=== PATIENT | female | born 1975 | race Caucasian/White ===

== ENCOUNTER 2018-10-07 06:13 | Emergency (ER) | payer SELFPAY ==
[~2018-10-07] VITALS: Ht 144.8 cm; Wt 59.0 kg
[2018-10-07 06:29] VITALS: BP 124/83
[2018-10-07] MEDS ORDERED: PENI500T PO (06:41)
[2018-10-07] MEDS ORDERED: ACET-704 PO (06:41)
[2018-10-07] MEDS ORDERED: NAPR-683 PO (06:41)
--- NOTE | 2018-10-07 06:41 | PHYS DOC ---
Past Medical History Past Medical History: No Pertinent History Past Surgical History: No Surgical History Alcohol Use: None Drug Use: None Adult General Chief Complaint Chief Complaint: DENTAL PROBLEM HPI HPI Patient is a 43 year old female who presents with complaining of tooth abscess. Patient complaining of pain in left upper jaw and tooth for the last 2 days with edema of gum and states she thinks she has abscess. Patient denies recent injury, fever and chills, dysphagia. Patient states she has had problem with her teeth with missing multiple teeth. Patient currently is smoking. Review of Systems Review of Systems Constitutional: Denies fever or chills [] Eyes: Denies change in visual acuity, redness, or eye pain [] HENT: Denies nasal congestion or sore throat [] Respiratory: Denies cough or shortness of breath [] Cardiovascular: No additional information not addressed in HPI [] GI: Denies abdominal pain, nausea, vomiting, bloody stools or diarrhea [] : Denies dysuria or hematuria [] Musculoskeletal: Denies back pain or joint pain [] Integument: Denies rash or skin lesions [] Neurologic: Denies headache, focal weakness or sensory changes [] Endocrine: Denies polyuria or polydipsia [] All other systems were reviewed and found to be within normal limits, except as documented in this note. Allergies Allergies Allergies Coded Allergies Type Severity Reaction Last Updated Verified No Known Drug Allergies 10/07/18 No Physical Exam Physical Exam Constitutional: Well developed, well nourished, mild distress, non-toxic appearance. [] HENT: Normocephalic, atraumatic, poor dental hygiene, edema and tenderness of gum in area of tooth #12 and 13 dental cavity and tenderness in the teeth. Eyes: PERRLA, EOMI, conjunctiva normal, no discharge. [] Neck: Normal range of motion, no tenderness, supple, no stridor. [] Cardiovascular:Heart rate regular rhythm, no murmur [] Lungs & Thorax: Bilateral breath sounds clear to auscultation [] Neurologic: Alert and oriented X 3, no focal deficits noted. [] Psychologic: Affect normal, judgement normal, mood normal. [] Current Patient Data Vital Signs Vital Signs Date Time Temp Pulse Resp B/P (MAP) Pulse Ox O2 Delivery O2 Flow Rate FiO2 10/07/18 06:29 99.0 80 18 124/83 (97) 98 Room Air 99.0 EKG EKG [] Radiology/Procedures Radiology/Procedures [] Course & Med Decision Making Course & Med Decision Making Evaluation of patient in ER showed 43-year-old female patient presented to ER with complaining of dental pain and abscess without fever and chills and facial cellulitis. Patient did not want to have pain medication in ER. Patient was advised to quit smoking Follow-up with the dentist. Dragon Disclaimer Dragon Disclaimer This electronic medical record was generated, in whole or in part, using a voice recognition dictation system. Departure Departure Impression: Primary Impression: Dental abscess Disposition: HOME, SELF-CARE (@0638) Condition: STABLE Patient Instructions: Dental Abscess Additional Instructions: Quit smoking Follow-up with your dentist in 3-5 days Return to ER if not getting better Scripts Acetaminophen With Codeine (TYLENOL WITH CODEINE #3 TABLET) 1 Each Tablet 1 TAB PO PRN Q6HRS PRN for PAIN, #10 TAB Prov: AILYN BETANCOURT MD 10/07/18 Penicillin V Potassium (PENICILLIN V POTASSIUM) 500 Mg Tablet 2 TAB PO Q12HR, #40 TAB Prov: AILYN BETANCOURT MD 10/07/18 Naproxen (NAPROSYN) 500 Mg Tablet 1 TAB PO BID for pain, #20 TAB Prov: AILYN BETANCOURT MD 10/07/18 AILYN BETANCOURT MD Oct 07, 2018 06:41
== END 2018-10-07 06:50 | disposition home or self-care (01) ==
LOC: ER 06:13
DX: K04.7 Periapical abscess without sinus (principal); L03.211 Cellulitis of face; F17.200 Nicotine dependence, unspecified, uncomplicated
CPT/HCPCS: 99283

== ENCOUNTER 2018-11-10 18:21 | Emergency (ER) | payer SELFPAY ==
[~2018-11-10] VITALS: Ht 144.8 cm; Wt 59.0 kg
[~2018-11-10 18:21] MED LIST: ACET-704 PO; NAPR-683 PO; PENI500T PO
[2018-11-10] MEDS ORDERED: predniSONE 20 MG TABLET PO ONE (19:15)
[2018-11-10] MEDS ORDERED: IPRATRPIUM/ALBUTEROL 0.5/2.5MG 3 ML NEBU. NEB ONE (19:15)
[2018-11-10] MEDS ORDERED: HYDROcodone/APAP 5/325MG 1 TAB TABLET PO ONE (19:15)
[2018-11-10] MEDS ORDERED: HYDR-3164 PO (19:24)
[2018-11-10] MEDS ORDERED: PRED50TA PO (19:24)
[2018-11-10] MEDS ORDERED: ALBU2.5V5 NEB (19:24)
--- NOTE | 2018-11-10 19:27 | PHYS DOC ---
Past Medical History Past Medical History: Asthma Past Surgical History: No Surgical History Smoking: Cigarettes Alcohol Use: None Drug Use: None Adult General Chief Complaint Chief Complaint: ASTHMA HPI HPI Patient is a 43 year old female who presents with complaining of asthma. Patient complaining of dry cough and shortness of breath since this morning with bilateral chest wall pain during episodes of cough. Patient states she is out of asthma medication including inhalers and nebulizer medication. Patient did not have sick contact. Patient states she did not smoke today because of shortness of breath. Patient denies fever, , vomiting and diarrhea. Review of Systems Review of Systems Constitutional: Denies fever or chills [] Eyes: Denies change in visual acuity, redness, or eye pain [] HENT: Denies nasal congestion or sore throat [] Respiratory: Reports cough and shortness of breath Cardiovascular: No additional information not addressed in HPI [] GI: Denies abdominal pain, nausea, vomiting, bloody stools or diarrhea [] : Denies dysuria or hematuria [] Musculoskeletal: Denies back pain or joint pain [] Integument: Denies rash or skin lesions [] Neurologic: Denies headache, focal weakness or sensory changes [] Endocrine: Denies polyuria or polydipsia [] All other systems were reviewed and found to be within normal limits, except as documented in this note. Current Medications Current Medications Current Medications Medications (Trade) Dose Ordered Sig/Chris Start Time Stop Time Status Last Admin Dose Admin Acetaminophen/ Hydrocodone Bitart (Lortab 5/325) 1 tab 1X ONCE 11/10/18 19:15 11/10/18 19:16 DC 11/10/18 19:19 1 TAB Albuterol/ Ipratropium (Duoneb) 3 ml 1X ONCE 11/10/18 19:15 11/10/18 19:16 DC 11/10/18 19:36 3 ML Prednisone (Prednisone) 60 mg 1X ONCE 11/10/18 19:15 11/10/18 19:16 DC 11/10/18 19:18 60 MG Allergies Allergies Allergies Coded Allergies Type Severity Reaction Last Updated Verified No Known Drug Allergies 10/07/18 No Physical Exam Physical Exam Constitutional: Well developed, well nourished, mild distress, non-toxic appearance. [] HENT: Normocephalic, atraumatic, bilateral external ears normal, oropharynx moist, no oral exudates, nose normal. [] Eyes: PERRLA, EOMI, conjunctiva normal, no discharge. [] Neck: Normal range of motion, no tenderness, supple, no stridor. [] Cardiovascular:Heart rate regular rhythm, no murmur [] Lungs & Thorax: No respiratory distress, bilateral wheezing and coarse breath sounds Abdomen: Bowel sounds normal, soft, no tenderness, no masses, no pulsatile masses. [] Skin: Warm, dry, no erythema, no rash. [] Back: No tenderness, no CVA tenderness. [] Extremities: No tenderness, no cyanosis, no clubbing, ROM intact, no edema. [] Neurologic: Alert and oriented X 3, normal motor function, normal sensory function, no focal deficits noted. [] Psychologic: Affect normal, judgement normal, mood normal. [] Current Patient Data Vital Signs Vital Signs Date Time Temp Pulse Resp B/P (MAP) Pulse Ox O2 Delivery O2 Flow Rate FiO2 11/10/18 19:46 72 18 120/67 (84) 99 Room Air 11/10/18 18:38 98.4 98.4 EKG EKG [] Radiology/Procedures Radiology/Procedures [] Course & Med Decision Making Course & Med Decision Making Evaluation of patient in ER showed 43-year-old female patient with history of asthma and smoking presented with acute asthma episode without having asthma medication at home. Patient treated with nebulizer treatment and [place] and prednisone PO in ER(patient didn't want to have injection of prednisone). Patient was advised to quit smoking. I've spoken with the patient and/or caregivers. I've explained the patient's condition, diagnosis and treatment plan based on information available to me at this time. I've answered the patient's and/or caregivers questions and addressed any concerns. The patient and/or caregivers have a good understanding the patient's diagnosis, condition and treatment plan as can be expected at this point. Vital signs have been stabilized. The patient's condition is stable for discharge from the emergency department. The patient will pursue further outpatient evaluation with her primary care provider or other designated consulting physician as outlined in the discharge instructions. Patient and/or caregivers are agreeable to this plan of care and follow-up instructions have been explained in detail. The patient and/or caregivers have received these instructions in written format and expressed understanding of these discharge instructions. The patient and her caregivers are aware that if any significant change in condition or worsening of symptoms should prompt him to immediately return to this of the closest emergency department. If an emergent department is not readily available I would encourage him to call 911. Ansley Disclaimer Ansley Disclaimer This electronic medical record was generated, in whole or in part, using a voice recognition dictation system. Departure Departure Impression: Primary Impression: Acute asthma exacerbation Disposition: HOME, SELF-CARE (at 1930) Condition: IMPROVED Referrals: NO PCP (PCP) Patient Instructions: Asthma Attacks, Prevention, Asthma, Acute Bronchospasm, Smoking Cessation, Tips For Success Additional Instructions: Drink plenty of liquids Follow-up with your primary care physician in 3-5 days Return to ER if not getting better Scripts Prednisone (PREDNISONE) 50 Mg Tablet 1 TAB PO DAILY, #5 TAB Prov: AILYN BETANCOURT MD 11/10/18 Hydrocodone/Apap 5-325 (NORCO 5-325 TABLET) 1 Each Tablet 1 TAB PO PRN Q6HRS PRN for PAIN, #10 TAB 0 Refills Prov: AILYN BETANCOURT MD 11/10/18 Albuterol Sulfate (ALBUTEROL SULFATE NEB SOLN) 2.5 Mg/3 Ml Vial.neb 1 VIAL NEB Q6HRS PRN for SHORTNESS OF BREATH, #25 VIAL Prov: AILYN BETANCOURT MD 11/10/18 Problem Qualifiers Primary Impression: Acute asthma exacerbation Asthma severity: mild Asthma persistence: intermittent Qualified Codes: J45.21 - Mild intermittent asthma with (acute) exacerbation AILYN BETANCOURT MD Nov 10, 2018 19:27
[2018-11-10 19:46] VITALS: BP 120/67
== END 2018-11-10 19:50 | disposition home or self-care (01) ==
LOC: ER 18:21
DX: J45.21 Mild intermittent asthma with (acute) exacerbation (principal); F17.210 Nicotine dependence, cigarettes, uncomplicated
CPT/HCPCS: 94640; 99283; J7512; J7620

== ENCOUNTER 2020-07-15 15:02 | Emergency (ER) | payer SELFPAY ==
[~2020-07-15] VITALS: Ht 144.8 cm; Wt 50.0 kg
[~2020-07-15 15:02] MED LIST changes: +ALBU2.5V5 NEB; +HYDR-3164 PO; +PRED50TA PO
[2020-07-15 15:43] VITALS: BP 107/71
[2020-07-15 15:54] LABS: BILIRUBIN,URINE NEGATIVE (NEG); CLARITY,URINE CLEAR; COLOR,URINE YELLOW; NITRITE,URINE NEGATIVE (NEG); PROTEIN,URINE NEGATIVE (NEG-TRACE); UROBILINOGEN,URINE 0.2 mg/dL (0.2 mg/dL)
--- NOTE | 2020-07-15 15:55 | ED.ADGEN ---
Past Medical History Past Medical History: Anxiety, Asthma Past Surgical History: Tubal ligation Smoking Status: Current Every Day Smoker Alcohol Use: None Drug Use: None General Adult EDM: Chief Complaint: FLANK PAIN HPI: HPI: Patient is a 45-year-old female who arrives ambulatory to the emergency department complaining of a 2-day history of left flank pain. Patient states this pain has been waxing and waning during this time and has an aching character to it. The patient states she is of the opinion she may have a kidney infection once antibiotics so she can go home. She denies any fevers or dysuria. She further denies abdominal pain. Additionally she denies any vaginal symptoms. She is awake, alert and nontoxic-appearing. Review of Systems: Review of Systems: Constitutional: Denies fever or chills. [] Eyes: Denies change in visual acuity. [] HENT: Denies nasal congestion or sore throat. [] Respiratory: Denies cough or shortness of breath. [] Cardiovascular: Denies chest pain or edema. [] GI: Denies abdominal pain, nausea, vomiting, bloody stools or diarrhea. [] : Reports left flank pain. Denies dysuria. [] Musculoskeletal: Denies back pain or joint pain. [] Integument: Denies rash. [] Neurologic: Denies headache, focal weakness or sensory changes. [] Endocrine: Denies polyuria or polydipsia. [] Lymphatic: Denies swollen glands. [] Psychiatric: Denies depression or anxiety. [] Allergies: Allergies: Allergies Coded Allergies Type Severity Reaction Last Updated Verified No Known Drug Allergies 10/07/18 No Physical Exam: PE: Constitutional: Uncomfortable appearing. Well developed, well nourished, non- toxic appearance. [] HENT: Normocephalic, atraumatic, bilateral external ears normal, oropharynx moist, no oral exudates, nose normal. [] Eyes: PERRLA, EOMI, conjunctiva normal, no discharge. [] Neck: Normal range of motion, no tenderness, supple, no stridor. [] Cardiovascular:Heart rate regular rhythm, no murmur [] Lungs & Thorax: Bilateral breath sounds clear to auscultation [] Abdomen: Bowel sounds normal, soft, no tenderness, no masses, no pulsatile masses. [] Skin: Warm, dry, no erythema, no rash. [] Back: Minimal CVA tenderness on the left side. No midline pain or right-sided CVA tenderness. [] Extremities: No tenderness, no cyanosis, no clubbing, ROM intact, no edema. [] Neurologic: Alert and oriented X 3, normal motor function, normal sensory function, no focal deficits noted. [] Psychologic: Affect normal, judgement normal, mood normal. [] Current Patient Data: Labs: Laboratory Tests Test 07/15/20 15:18 07/15/20 15:24 Urine Collection Type Unknown Urine Color Yellow Urine Clarity Clear Urine pH 7.0 (<5.0-8.0) Urine Specific [place] <=1.005 (1.000-1.030) Urine Protein Negative mg/dL (NEG-TRACE) Urine Glucose (UA) Negative mg/dL (NEG) Urine Ketones (Stick) Negative mg/dL (NEG) Urine Blood Negative (NEG) Urine Nitrite Negative (NEG) Urine Bilirubin Negative (NEG) Urine Urobilinogen Dipstick 0.2 mg/dL (0.2 mg/dL) Urine Leukocyte Esterase Negative (NEG) Urine RBC 0 /HPF (0-2) Urine WBC 1-4 /HPF (0-4) Urine Squamous Epithelial Cells Mod /LPF Urine Bacteria Many /HPF (0-FEW) POC Urine HCG, Qualitative Hcg negative (Negative) Vital Signs: Vital Signs Date Time Temp Pulse Resp B/P (MAP) Pulse Ox O2 Delivery O2 Flow Rate FiO2 07/15/20 15:43 98.7 98 12 107/71 (83) 94 Room Air 98.7 EKG: EKG: [] Heart Score: C/O Chest Pain: No Risk Factors: Risk Factors: DM, Current or recent (<one month) smoker, HTN, HLP, family history of CAD, obesity. Risk Scores: Score 0 - 3: 2.5% MACE over next 6 weeks - Discharge Home Score 4 - 6: 20.3% MACE over next 6 weeks - Admit for Clinical Observation Score 7 - 10: 72.7% MACE over next 6 weeks - Early Invasive Strategies Radiology/Procedures: Radiology/Procedures: [] Course & Med Decision Making: Course & Med Decision Making Pertinent Labs and Imaging studies reviewed. (See chart for details) The patient remains awake, alert and in no acute distress. Patient has findings that may equate to early pyelonephritis. The patient has been drinking lots of fluids without relief. I have advised the patient to have CT imaging the patient states she wants to try antibiotics first before any imaging can take place. Should the patient develop any abdominal pain or fevers and invited her to return immediately to the emergency department. Patient states she will do this as needed. She is nontoxic-appearing and stable for discharge. [] Dragon Disclaimer: Dragon Disclaimer: This electronic medical record was generated, in whole or in part, using a voice recognition dictation system. Departure Departure Impression: Primary Impression: UTI (urinary tract infection) Additional Impression: Left flank pain Disposition: HOME / SELF CARE / HOMELESS Condition: STABLE Referrals: NO PCP (PCP) Patient Instructions: Flank Pain, Urinary Tract Infection Scripts Cephalexin (KEFLEX) 750 Mg Capsule 500 MG PO QID for 7 Days, #28 CAP Prov: GABBY BENITEZ DO 07/15/20 Problem Qualifiers GABBY BENITEZ DO Jul 15, 2020 15:55
[2020-07-15 16:09] LABS: BACTERIA,URINE MANY /HPF (0-FEW); RBC,URINE 0 /HPF (0-2)
[2020-07-15] MEDS ORDERED: CEPH750C9 PO (16:16)
== END 2020-07-15 16:23 | disposition home or self-care (01) ==
LOC: ER 15:02
DX: N39.0 Urinary tract infection, site not specified (principal); J45.909 Unspecified asthma, uncomplicated; F17.200 Nicotine dependence, unspecified, uncomplicated
CPT/HCPCS: 81001; 81025; 87086; 99283